=== PATIENT | female | born 1995 | race Caucasian/White ===

== ENCOUNTER 2016-06-19 17:39 | Emergency (ER) | payer OTHER ==
[~2016-06-19] VITALS: Ht 160 cm; Wt 66.9 kg
[~2016-06-19 17:39] MED LIST: CEPH-443 PO; IBUP-1542 PO; NITR-58 PO; ONDA4TAB8 PO; OXYC-279 PO
[2016-06-19 17:47] VITALS: Ht 160 cm; Wt 66.9 kg
[2016-06-19] MEDS ORDERED: morphine 4 MG/ML VIAL IV STA (18:33)
[2016-06-19] MEDS ORDERED: ONDANSETRON 4 MG INJ IV STA (18:33)
[2016-06-19 19:08] LABS: ADD UMIC YES; URINE BILIRUBIN (Dip) NEGATIVE (NEGATIVE); URINE BLOOD (Dip) 1+ (NEGATIVE); URINE COLOR LT. YELLOW (YELLOW); URINE GLUCOSE (Dip) NEGATIVE (NEGATIVE); URINE KETONES (Dip) NEGATIVE (NEGATIVE); URINE LEUKOCYTE ESTERASE (Dip) 1+ (NEGATIVE); URINE NITRITE (Dip) POSITIVE (NEGATIVE); URINE TOTAL PROTEIN (Dip) NEGATIVE (NEGATIVE); URINE UROBILINOGEN (Dip) 0.2 E.U./dL (0.1-1.0)
--- NOTE | 2016-06-19 19:19 | ERD ---
ER Documentation Chief Complaint Date/Time DATE: 06/19/16 TIME: 19:17 Chief Complaint INTERMITTENT LT FLANK PAIN SINCE YESTERDAY HPI This is a 21-year-old female who presents to the emergency department today complaining of left-sided flank pain for the past 2 days. Patient states she has a history of kidney stones on both sides and been seen here in the past for this. States she has not taken any medication for the pain. Denies any dysuria , fevers or chills. States that she did pass her kidney stones last time. ROS All systems reviewed and are negative except as per history of present illness. Medications Home Meds Active Scripts Ciprofloxacin Hcl* (Ciprofloxacin Hcl*) 500 Mg Tablet, 500 MG PO BID for 10 Days , TAB Prov:PATRICE HAYS PA-C 06/19/16 Naproxen* (Naprosyn*) 500 Mg Tablet, 500 MG PO BID Y for PAIN AND/OR INFLAMMATION, #30 TAB Prov:PATRICE HAYS PA-C 06/19/16 Hydrocodone/Acetaminophen ([place] 5-325 Tablet) 1 Each Tablet, 1 TAB PO Q6H Y for PAIN, #12 TAB Prov:PATRICE HAYS PA-C 06/19/16 Nitrofurantoin Monohyd Macrocr* (Macrobid*) 100 Mg Capsr, 100 MG PO BID for 7 Days, CAP Prov:PATRICE HAYS PA-C 03/24/16 Oxycodone HCl/Acetaminophen (Percocet 5-325 mg Tablet) 1 Each Tablet, 1 EACH PO TID for PAIN, #12 TAB Prov:LEANNE MALLOY MD 02/19/16 Ondansetron Hcl* (Zofran*) 4 Mg Tablet, 4 MG PO Q8H Y for NAUSEA AND/OR VOMITING , #20 TAB Prov:LEANNE MALLOY MD 02/19/16 Ibuprofen* (Ibuprofen*) 600 Mg Tablet, 600 MG PO Q8 for PAIN AND/OR INFLAMMATION , #30 TAB Prov:LEANNE MALLOY MD 02/19/16 Cephalexin* (Keflex*) 500 Mg Capsule, 500 MG PO TID for 7 Days, CAP Prov:LEANNE MALLOY MD 02/19/16 Allergies Allergies: Coded Allergies: No Known Allergies (Verified Allergy, Mild, 02/19/16) PMhx/Soc History of Surgery: Yes (, CHOLESYSTECTOMY) Anesthesia Reaction: No Hx Neurological Disorder: No Hx Respiratory Disorders: No Hx Cardiac Disorders: No Hx Psychiatric Problems: No Hx Miscellaneous Medical Probl: No (KIDNEY STONES ) Hx Alcohol Use: Yes (OOC) Hx Substance Use: No Hx Tobacco Use: No Smoking Status: Never smoker Physical Exam Vitals Vital Signs Date Time Temp Pulse Resp B/P Pulse Ox O2 Delivery O2 Flow Rate FiO2 06/19/16 17:47 98.8 70 20 134/99 100 Physical Exam Const: No acute distress Head: Atraumatic Eyes: Normal Conjunctiva ENT: Normal External Ears, Nose and Mouth. Neck: Full range of motion..~ No meningismus. Resp: Clear to auscultation bilaterally Cardio: Regular rate and rhythm, no murmurs Abd: Soft, non tender, non distended. Normal bowel sounds Skin: No petechiae or rashes Back: No midline tenderness. Left-sided flank tenderness and CVA tenderness. Neur: Awake and alert Psych: Normal Mood and Affect Results 24 hrs Laboratory Tests Test 06/19/16 18:48 Urine Bacteria MANY Urine Bilirubin NEGATIVE Urine Clarity CLOUDY Urine Color LT. YELLOW Urine Glucose NEGATIVE% Urine Hemoglobin 1+ Urine Ketones NEGATIVE Urine Leukocyte Esterase 1+ Urine Microscopic RBC 2-5/HPF Urine Microscopic WBC >200/HPF Urine Nitrite POSITIVE Urine Specific [place] 1.025 Urine Squamous Epithelial Cells MANY Urine Total Protein NEGATIVE Urine Urobilinogen 0.2 E.U./dL Urine pH 6.0 Current Medications Medications (Trade) Dose Ordered Sig/Robb Route PRN Reason Start Time Stop Time Status Last Admin Dose Admin Morphine Sulfate (morphine) 4 mg ONCE STAT IV 06/19/16 18:33 06/19/16 18:34 DC 06/19/16 19:01 Ondansetron HCl (Zofran Inj) 4 mg ONCE STAT IV 06/19/16 18:33 06/19/16 18:34 DC 06/19/16 19:01 Ceftriaxone Sodium (Rocephin) 1 gm ONCE ONCE IVPB 06/19/16 20:00 06/19/16 20:01 DC 06/19/16 19:55 Procedures/MDM This is a 21-year-old female who presents to the emergency department today complaining of left-sided flank pain for the past 2 days. Patient has a history of kidney stones. I did see this patient upon her last visit here in March 2016 when she presented with pain with urination at that time. Today on physical exam patient does have some left-sided flank pain and tenderness and therefore I did obtain a UA . UA shows 1+ leukocyte esterase. Positive nitrates. Greater than 200 microscopic white blood cells and 2-5 red blood cells. Patient symptoms at this time is consistent with early pyelonephritis. Patient is afebrile and otherwise well-appearing at this time. She is not tachycardic. I have lower suspicion for septic stone at this time. I do not feel that the patient requires a CT scan or ultrasound. Patient has had 2 CT scans in the past and at this point I feel the risks outweigh the benefits.. Patient was given morphine and Zofran here in the emergency department and pain was controlled. She was also given Rocephin here in the emergency department. Patient will be given a prescription for Cipro and Snyder and Naprosyn. Patient does have an appointment for follow-up with her primary care doctor later this month. I have explained to her that she should follow up with a sheep clipper given her multiple problems with her kidneys. Patient understood. I have given her a list of referrals. Departure Diagnosis: Primary Impression: Flank pain Condition: PATRICE Beach PA-C Jun 19, 2016 19:19
[2016-06-19 19:23] LABS: BACTERIA,URINE MANY; SQUAMOUS EPITHELIAL CELL,UR MANY
[2016-06-19] MEDS ORDERED: CEFTRIAXONE 1 GM INJ IVPB ONE (20:00)
[2016-06-19] MEDS ORDERED: HYDR-906 PO (20:35)
[2016-06-19] MEDS ORDERED: NAPR-260 PO (20:36)
[2016-06-19] MEDS ORDERED: CIPR500T4 PO (20:37)
[2016-06-19 20:51] VITALS: BP 121/82; PULSE 67; RESP 18; TEMP 98
== END 2016-06-19 20:51 | disposition home or self-care (01) ==
LOC: FTE 17:39
DX: R10.9 Unspecified abdominal pain (principal)
CPT/HCPCS: 81001; 81003; 87086; 96374; 96375; J0696; J2270; J2405; Z7502

== ENCOUNTER 2016-09-08 19:48 | Emergency (ER) | payer OTHER ==
[~2016-09-08] VITALS: Ht 152.4 cm; Wt 70.0 kg
[~2016-09-08 19:48] MED LIST changes: +CIPR500T4 PO; +HYDR-906 PO; +NAPR-260 PO
[2016-09-08 19:50] VITALS: Ht 152.4 cm; Wt 70.0 kg
--- NOTE | 2016-09-08 20:23 | ERD ---
ER Documentation Chief Complaint Date/Time DATE: 09/08/16 TIME: 20:21 Chief Complaint ap x2 days denies n/v/d. states about 4-5 weeks preg. no bleeding. HPI 21-year-old female presents here in emergency department for complaints of lower abdominal pain that started 2 weeks ago, worst in the last 2 days. Patient describes the pain as pelvic pain cramping pain 6/10 scale, not better or worse with anything. Patient's approximate 4 weeks , 2 para 1 0. LMP 07/30/2016. Patient denies any vaginal bleeding. Patient denies hematuria or dysuria. Patient denies any nausea vomiting or diarrhea. ROS All systems reviewed and are negative except as per history of present illness. Medications Home Meds Active Scripts Ciprofloxacin Hcl* (Ciprofloxacin Hcl*) 500 Mg Tablet, 500 MG PO BID for 10 Days , TAB Prov:PATRICE HAYS PA-C 06/19/16 Naproxen* (Naprosyn*) 500 Mg Tablet, 500 MG PO BID Y for PAIN AND/OR INFLAMMATION, #30 TAB Prov:PATRICE HAYS PA-C 06/19/16 Hydrocodone/Acetaminophen ([place] 5-325 Tablet) 1 Each Tablet, 1 TAB PO Q6H Y for PAIN, #12 TAB Prov:PATRICE HAYS PA-C 06/19/16 Nitrofurantoin Monohyd Macrocr* (Macrobid*) 100 Mg Capsr, 100 MG PO BID for 7 Days, CAP Prov:PATRICE HAYS PA-C 03/24/16 Oxycodone HCl/Acetaminophen (Percocet 5-325 mg Tablet) 1 Each Tablet, 1 EACH PO TID for PAIN, #12 TAB Prov:LEANNE MALLOY MD 02/19/16 Ondansetron Hcl* (Zofran*) 4 Mg Tablet, 4 MG PO Q8H Y for NAUSEA AND/OR VOMITING , #20 TAB Prov:LEANNE MALLOY MD 02/19/16 Ibuprofen* (Ibuprofen*) 600 Mg Tablet, 600 MG PO Q8 for PAIN AND/OR INFLAMMATION , #30 TAB Prov:LEANNE MALLOY MD 02/19/16 Cephalexin* (Keflex*) 500 Mg Capsule, 500 MG PO TID for 7 Days, CAP Prov:LEANNE MALLOY MD 02/19/16 Allergies Allergies: Coded Allergies: No Known Allergies (Verified Allergy, Mild, 02/19/16) PMhx/Soc History of Surgery: Yes (, CHOLESYSTECTOMY) Anesthesia Reaction: No Hx Neurological Disorder: No Hx Respiratory Disorders: No Hx Cardiac Disorders: No Hx Psychiatric Problems: No Hx Miscellaneous Medical Probl: No (KIDNEY STONES ) Hx Alcohol Use: Yes (OOC) Hx Substance Use: No Hx Tobacco Use: No FmHx Family History: No coronary disease, No diabetes, No other Physical Exam Vitals Vital Signs Date Time Temp Pulse Resp B/P Pulse Ox O2 Delivery O2 Flow Rate FiO2 09/08/16 19:50 99.0 83 20 127/80 100 Physical Exam GENERAL: The patient is well developed and appropriate for usual state of health, in no apparent distress. CHEST: Clear to auscultation bilaterally. There are no rales, wheezes or rhonchi. HEART: Regular rate and rhythm. No murmurs, clicks, rubs or gallops. No S3 or S4. ABDOMEN: Soft, nontender and nondistended. Good bowel sounds. No rebound or guarding. No gross peritonitis. No gross organomegaly or masses. No Ramírez sign or McBurney point tenderness. BACK: No midline or flank tenderness. EXTREMITIES: Equal pulses bilaterally. There is no peripheral clubbing, cyanosis or edema. No focal swelling or erythema. Full range of motion. Grossly neurovascularly intact. NEURO: Alert and oriented. Cranial nerves 2-12 intact. Motor strength in all 4 extremities with 5/5 strength. Sensation grossly intact. Normal speech and gait. SKIN: There is no apparent rash or petechia. The skin is warm and dry. HEMATOLOGIC AND LYMPHATIC: There is no evidence of excessive bruising or lymphedema. No gross cervical, axillary, or inguinal lymphadenopathy. Result Diagram: 09/08/162033 Results 24 hrs Laboratory Tests Test 09/08/16 20:34 White Blood Count 7.210^3/ul Red Blood Count 4.3010^6/ul Hemoglobin 12.4g/dl Hematocrit 37.2% Mean Corpuscular Volume 86.5fl Mean Corpuscular Hemoglobin 28.8pg Mean Corpuscular Hemoglobin Concent 33.3g/dl Red Cell Distribution Width 13.7% Platelet Count 32180^3/UL Mean Platelet Volume 14.0fl Neutrophils % 66.0% Lymphocytes % 28.0% Monocytes % 3.0% Eosinophils % 3.0% Neutrophils # 4.810^3/ul Lymphocytes # 2.010^3/ul Monocytes # 0.210^3/ul Eosinophils # 0.210^3/ul Urine Color LT. YELLOW Urine Clarity CLEAR Urine pH 6.5 Urine Specific [place] 1.015 Urine Ketones NEGATIVE Urine Nitrite NEGATIVE Urine Bilirubin NEGATIVE Urine Urobilinogen 0.2 E.U./dL Urine Leukocyte Esterase NEGATIVE Urine Microscopic RBC 0-2/HPF Urine Microscopic WBC NONE SEEN/HPF Urine Epithelial Cells MODERATE Urine Bacteria RARE Urine Hemoglobin TRACE Urine Glucose NEGATIVE% Urine Total Protein NEGATIVE Beta HCG, Quantitative 2336.5mIU/ml PROCEDURE: OBSTETRICAL ULTRASOUND WITH ENDOVAGINAL IMAGES CLINICAL INDICATION: Vaginal Bleed (), abdominal pain TECHNIQUE: Multiple sonographic images of the pelvis were obtained utilizing a transabdominal and endovaginal technique. The images were reviewed on a PACS workstation. COMPARISON: None. LMP: 07/30/2016 Gestational age by LMP: 5 weeks, 5 days FINDINGS: There is thickening of the endometrium. A possible intrauterine gestational sac is identified with mean sac diameter of 0.41 cm which would be consistent with a gestational age of 5 weeks, 0 days and an estimated date of delivery of 05/11/2017 . No yolk sac or pole is identified within it. The right ovary measures 3.3 x 2.0 x 2.1 cm. The left ovary measures 4.2 x 3.1 x 3.3 cm. There is normal vascular flow in both ovaries. There is a 2.9 cm simple cystic lesion in the left ovary which is likely an enlarged follicle. No significant pelvic free fluid is identified. IMPRESSION: A possible intrauterine gestational sac is identified which would be consistent with a gestational age of 5 weeks, 0 days . No yolk sac or pole is identified within it. Findings may be due to an early intrauterine although an ectopic is not excluded. Short-term follow-up ultrasound and serial Beta HCG measurements are recommended for further evaluation. RPTAT: EE Jesus Villanueva Physician Date Time Electronically viewed and signed by Jesus Villanueva Physician on 09/08/2016 21:34 RA/ CC: ANDER ROWE NP Procedures/MDM Medical Decision Making: Patient's pelvic pain nonspecific at this time, beta hCG quantitative is elevated is consistent with , patient's ultrasound show a possible intrauterine gestation without any yolk sac OR pole consistent with possible early , may be also consistent with early intrauterine failed gestation, low suspicion for ectopic at this time , upon reevaluation of the patient, patient denies any abdominal pain, denies any flank pain. Patient denies any pain at this time. We will be testing in 2 days was advised for repeat beta hCG quantitative, possible repeat ultrasound. Ectopic percussion was advised to the patient and patient understand this plan and verbalized understanding. There is low suspicion for abdominal emergencies at this time. Patients abdominal exam is normal at this time. Patients radiology exam does not show any abdominal emergencies at this time. There is low suspicion for appendicitis, cholecystitis, abdominal aortic aneurysms or peritonitis at this time. There is low suspicion for sepsis. Patient appears well and is hemodynamically stable. Disposition: Home. Condition: Stable Prescription Tylenol Instructions: Patient is advised to take medications as prescribed. Patient is advised to rest, increase fluid intake and do brat diet for next 1-2 days and progress as tolerated. Patient is advised that if symptoms are worse, severe abdominal pain, uncontrolled vomiting, high fever, severe flank pain, worst signs and symptoms, to return to the emergency department immediately. Otherwise, patient can follow up in emergency Department in 2 days for reevaluation of beta hCG quantitative. Departure Diagnosis: Primary Impression: Pelvic pain Additional Impression: Intrauterine Condition: Stable Patient Instructions: Pelvic Pain, Unknown Cause Additional Instructions: Patient is advised to take medications as prescribed. Patient is advised to rest, increase fluid intake and do brat diet for next 1-2 days and progress as tolerated. Patient is advised that if symptoms are worse, severe abdominal pain , uncontrolled vomiting, high fever, severe flank pain, worst signs and symptoms , to return to the emergency department immediately. Otherwise, patient can follow up in emergency Department in 2 days for reevaluation of beta hCG quantitative. ANDER ROWE NP September 08, 2016 20:23
[2016-09-08 20:54] LABS: ADD SCAN DIFF NO
[2016-09-08 20:59] LABS: ABNORMAL IP MESSAGE 1; HEMATOCRIT 37.2 % (37.0-47.0); HEMOGLOBIN 12.4 g/dl (12.0-16.0); MEAN CORPUSCULAR HEMOGLOBIN 28.8 pg (29.0-33.0); MEAN CORPUSCULAR HGB CONC 33.3 g/dl (32.0-37.0); MEAN CORPUSCULAR VOLUME 86.5 fl (82.0-101.0); PLATELET COUNT 121 10^3/UL (140-415); RED CELL DISTRIBUTION WIDTH 13.7 % (11.5-14.5); WHITE BLOOD COUNT 7.2 10^3/ul (4.8-10.8)
[2016-09-08 21:00] LABS: ADD UMIC YES; URINE BILIRUBIN (Dip) NEGATIVE (NEGATIVE); URINE BLOOD (Dip) TRACE (NEGATIVE); URINE COLOR LT. YELLOW (YELLOW); URINE GLUCOSE (Dip) NEGATIVE (NEGATIVE); URINE KETONES (Dip) NEGATIVE (NEGATIVE); URINE LEUKOCYTE ESTERASE (Dip) NEGATIVE (NEGATIVE); URINE NITRITE (Dip) NEGATIVE (NEGATIVE); URINE TOTAL PROTEIN (Dip) NEGATIVE (NEGATIVE); URINE UROBILINOGEN (Dip) 0.2 E.U./dL (0.1-1.0)
[2016-09-08 21:08] LABS: URINE RBCS 0-2 /HPF (0)
[2016-09-08 21:09] LABS: BACTERIA,URINE RARE
[2016-09-08 21:32] LABS: EOSINOPHILS # 0.2 10^3/ul (0.0-0.5); MONOCYTE # 0.2 10^3/ul (0.3-0.9); NEUTROPHIL # 4.8 10^3/ul (1.6-7.5)
--- NOTE | 2016-09-08 21:34 | RADRPT ---
PROCEDURE: OBSTETRICAL ULTRASOUND WITH ENDOVAGINAL IMAGES CLINICAL INDICATION: Vaginal Bleed (), abdominal pain TECHNIQUE: Multiple sonographic images of the pelvis were obtained utilizing a transabdominal and endovaginal technique. The images were reviewed on a PACS workstation. COMPARISON: None. LMP: 07/30/2016 Gestational age by LMP: 5 weeks, 5 days FINDINGS: There is thickening of the endometrium. A possible intrauterine gestational sac is identified with mean sac diameter of 0.41 cm which would be consistent with a gestational age of 5 weeks, 0 days and an estimated date of delivery of 018 . No yolk sac or pole is identified within it. The right ovary measures 3.3 x 2.0 x 2.1 cm. The left ovary measures 4.2 x 3.1 x 3.3 cm. There is no rmal vascular flow in both ovaries. There is a 2.9 cm simple cystic lesion in the left ovary which is likely an enlarged follicle. No significant pelvic free fluid is identified. IMPRESSION: A possible intrauterine gestational sac is identified which would be consistent with a gestational a ge of 5 weeks, 0 days . No yolk sac or pole is identified within it. Findings may be due to a n early intrauterine although an ectopic is not excluded. Short-term follow-up ultrasound and serial Beta HCG measurements are recommended for further evaluation. RPTAT: EE Physician Marlee Date Time Electronically viewed and signed by Physician Marlee on 09/08/2016 21:34 /
[2016-09-08] MEDS ORDERED: ACET500C5 PO (21:53)
== END 2016-09-08 22:25 | disposition home or self-care (01) ==
LOC: FTE 19:48
DX: O99.89 Other specified diseases and conditions complicating pregnancy, childbirth and the puerperium (principal); R10.2 Pelvic and perineal pain; Z3A.01 Less than 8 weeks gestation of pregnancy
CPT/HCPCS: 36415; 76801; 76817; 81001; 84702; 85025; 86900; 86901; Z7502

== ENCOUNTER 2016-09-10 06:02 | Emergency (ER) | payer OTHER ==
[~2016-09-10] VITALS: Ht 157.5 cm; Wt 69.5 kg
[~2016-09-10 06:02] MED LIST changes: +ACET500C5 PO
[2016-09-10 06:04] VITALS: Ht 157.5 cm; Wt 69.5 kg
--- NOTE | 2016-09-10 06:24 | ERD ---
ER Documentation Chief Complaint Date/Time DATE: 09/10/16 TIME: 06:23 Chief Complaint for recheck of 5 wks - beta hcg, here 2 days ago for pelvic pain HPI 21-year-old female is here for 48 hour recheck for beta quantitative, she is currently approximately 4-5 weeks and was previously seen for bilateral lower pelvic pain on Thursday which was 2 days ago. Patient states that her last menstrual period was on July 30, 2016, she had some bilateral pelvic pain that was achy, worse with any movement and resided after she left the emergency department. She has not had any fevers or chills, UTI symptoms, or vaginal bleeding. ROS All systems reviewed and are negative except as per history of present illness. Medications Home Meds Active Scripts Acetaminophen* (Tylophen*) 500 Mg Capsule, 1 CAP PO Q6H Y for PAIN AND OR ELEVATED TEMP, #20 CAP Prov:ANDER ROWE NP 09/08/16 Ciprofloxacin Hcl* (Ciprofloxacin Hcl*) 500 Mg Tablet, 500 MG PO BID for 10 Days , TAB Prov:PATRICE HAYSC 06/19/16 Naproxen* (Naprosyn*) 500 Mg Tablet, 500 MG PO BID Y for PAIN AND/OR INFLAMMATION, #30 TAB Prov:PATRICE HAYSC 06/19/16 Hydrocodone/Acetaminophen ([place] 5-325 Tablet) 1 Each Tablet, 1 TAB PO Q6H Y for PAIN, #12 TAB Prov:PROPATRICE CLARKC 06/19/16 Nitrofurantoin Monohyd Macrocr* (Macrobid*) 100 Mg Capsr, 100 MG PO BID for 7 Days, CAP Prov:PATRICE HAYSC 03/24/16 Oxycodone HCl/Acetaminophen (Percocet 5-325 mg Tablet) 1 Each Tablet, 1 EACH PO TID for PAIN, #12 TAB Prov:LEANNE MALLOY MD 02/19/16 Ondansetron Hcl* (Zofran*) 4 Mg Tablet, 4 MG PO Q8H Y for NAUSEA AND/OR VOMITING , #20 TAB Prov:LEANNE MALLOY MD 02/19/16 Ibuprofen* (Ibuprofen*) 600 Mg Tablet, 600 MG PO Q8 for PAIN AND/OR INFLAMMATION , #30 TAB Prov:LEANNE MALLOY MD 02/19/16 Cephalexin* (Keflex*) 500 Mg Capsule, 500 MG PO TID for 7 Days, CAP Prov:LEANNE MALLOY MD 02/19/16 Allergies Allergies: Coded Allergies: No Known Allergies (Verified Allergy, Mild, 02/19/16) PMhx/Soc History of Surgery: Yes (, CHOLESYSTECTOMY) Anesthesia Reaction: No Hx Neurological Disorder: No Hx Respiratory Disorders: No Hx Cardiac Disorders: No Hx Psychiatric Problems: No Hx Miscellaneous Medical Probl: No (KIDNEY STONES ) Hx Alcohol Use: Yes (OOC) Hx Substance Use: No Hx Tobacco Use: No Physical Exam Vitals Vital Signs Date Time Temp Pulse Resp B/P Pulse Ox O2 Delivery O2 Flow Rate FiO2 09/10/16 06:04 97.8 88 20 119/69 100 Physical Exam General: Well-developed, well-nourished. The patient appears in no acute distress. HEENT: Head is normocephalic, atraumatic. No scleral icterus. Neck: Supple. Nontender. Lungs: Clear to auscultation. Normal air movement. Heart: Regular rate and rhythm. S1 and S2 are normal. No murmurs, gallops, or rubs. Abdomen: Soft, nontender, nondistended. Bowel sounds are normoactive. Extremities: No clubbing or cyanosis. Normal pulses. Moving extremities x 4. No weakness. Neurologic: Alert and oriented 3. No focal deficits. Skin: Normal turgor. No rash or lesions. Results 24 hrs Laboratory Tests Test 09/10/16 06:30 09/10/16 06:33 Urine Color LT. YELLOW Urine Clarity CLEAR Urine pH 6.0 Urine Specific [place] 1.025 Urine Ketones NEGATIVE Urine Nitrite NEGATIVE Urine Bilirubin NEGATIVE Urine Urobilinogen 0.2 E.U./dL Urine Leukocyte Esterase NEGATIVE Urine Microscopic RBC 0-2/HPF Urine Microscopic WBC 0-2/HPF Urine Epithelial Cells FEW Urine Hemoglobin TRACE Urine Glucose NEGATIVE% Urine Total Protein NEGATIVE Beta HCG, Quantitative 3531.7mIU/ml Procedures/MDM ED course: Patient's EMR was reviewed, her hCG quantitative was compared to the prior, and it has increased by approximately 50% pelvic ultrasound showed a possible gestational sac that was measured to be 0.41 cm, and 0.43 cm today that is intrauterine. No adnexal masses. There is a small subchorionic hemorrhage however she is type and Rh+ and there is no indication for RhoGam. MDM: 21-year-old female comes with pelvic pain with positive , differential diagnosis includes early intrauterine , versus possible miscarriage. Suspicion for ectopic is low. Her beta quantitative hCG did increase by 50% and the sac is intrauterine, however there is no evidence of other masses, including adnexal masses. She has a simple cyst in the left ovary and subchorionic hemorrhage. This was discussed with the laborist, Dr Orosco. She advised that we should give ectopic return precautions, as well as miscarriage precautions and that she is to recheck an ultrasound in a week. I have asked the patient to recheck in 2-3 days as precaution, she has an appointment with her OB on Thursday. Departure Diagnosis: Primary Impression: Condition: SHARMIN Berumen PA-C September 10, 2016 06:24
[2016-09-10 06:46] LABS: ADD UMIC YES; URINE BILIRUBIN (Dip) NEGATIVE (NEGATIVE); URINE BLOOD (Dip) TRACE (NEGATIVE); URINE COLOR LT. YELLOW (YELLOW); URINE GLUCOSE (Dip) NEGATIVE (NEGATIVE); URINE KETONES (Dip) NEGATIVE (NEGATIVE); URINE LEUKOCYTE ESTERASE (Dip) NEGATIVE (NEGATIVE); URINE NITRITE (Dip) NEGATIVE (NEGATIVE); URINE TOTAL PROTEIN (Dip) NEGATIVE (NEGATIVE); URINE UROBILINOGEN (Dip) 0.2 E.U./dL (0.1-1.0)
[2016-09-10 07:06] LABS: URINE RBCS 0-2 /HPF (0)
--- NOTE | 2016-09-10 07:06 | RADRPT ---
PROCEDURE: Obstetrical ultrasound. CLINICAL INDICATION: Pelvic pain. TECHNIQUE: Multiple sonographic images of the pelvis were obtained with transabdominal and endova ginal technique. Images were obtained with hays scale and color Doppler. COMPARISON: 09/08/2016. FINDINGS: There is an intrauterine gestational sac with no pole or yolk sac identified. The mean sac di ameter averages 0.46 cm. A small subchorionic collection is identified. There is no pelvic free fluid. The right ovary measures 3.1 x 1.5 x 1.7 cm and the left ovary measu res 4.3 x 2.7 x 3.4 cm. There is normal flow to both ovaries. There is an anechoic cyst within the left ovary measuring 2.5 x 2.1 cm. There is no suspicious adnexal mass identified. IMPRESSION: Intrauterine gestational sac with no pole or yolk sac identified. Short-term follow-up ultras ound is recommended. Subchorionic hemorrhage. Left ovarian 2.5 cm simple cyst. .Tomi Gomez MD, MD Date Time Electronically viewed and signed by .Tomi Gomez MD, MD on 09/10/2016 07:06 .T/
== END 2016-09-10 09:18 | disposition home or self-care (01) ==
LOC: FTE 06:02
DX: O26.891 Other specified pregnancy related conditions, first trimester (principal); R10.2 Pelvic and perineal pain; Z3A.00 Weeks of gestation of pregnancy not specified
CPT/HCPCS: 36415; 76801; 76817; 81001; 84702; Z7502

== ENCOUNTER 2016-10-16 19:32 | Emergency (ER) | payer OTHER ==
[~2016-10-16] VITALS: Ht 160 cm; Wt 70.0 kg
[2016-10-16 19:33] VITALS: Ht 160 cm; Wt 70.0 kg
[2016-10-16] MEDS ORDERED: HYDROCODONE/APAP (5/325) TAB PO STA (20:12)
[2016-10-16] MEDS ORDERED: SOD CHLORIDE 0.9% 1,000 ML IV STA (20:12)
[2016-10-16 20:53] LABS: URINE BLOOD (Dip) POC 3+ (NEGATIVE)
--- NOTE | 2016-10-16 20:59 | RADRPT ---
PROCEDURE: First trimester obstetrical ultrasound. CLINICAL INDICATION: , pelvic pain TECHNIQUE: Transabdominal and transvaginal hays scale and color Doppler ultrasound of the uterus . COMPARISON: OB ultrasound 09/10/2016 FINDINGS: No evidence of extrauterine gestation. Previously seen gestational sac in the region of the uterine fundus now measures 8.5 mm and is seen in the region of the lower uterine segment. No evidence of subchorionic hemorrhage. Normal size ovaries are present with intact blood flow. Free fluid: None. IMPRESSION: Findings are compatible with failed intrauterine gestation given the lack of interval growth and inc omplete miscarriage with gestational sac remnant in the lower uterine segment. Correlation with larry ntitative beta HCG trend is recommended. Results were discussed with PA. Church by telephone at 2057 hours on 10/16/[address] Rebel wei RPTAT: AADD .Rebel Pérez MD, MD Date Time Electronically viewed and signed by .Rebel Pérez MD, MD on 10/16/2016 20:59 .B/
[2016-10-16 21:10] LABS: BASOPHILS % 0.2 % (0.0-2.0); EOSINOPHILS # 0.3 10^3/ul (0.0-0.5); EOSINOPHILS % 3.6 % (0.0-7.0); HEMATOCRIT 40.4 % (37.0-47.0); HEMOGLOBIN 13.4 g/dl (12.0-16.0); LYMPHOCYTES # 2.7 10^3/ul (0.8-2.9); LYMPHOCYTES % 31.4 % (15.0-51.0); MEAN CORPUSCULAR HEMOGLOBIN 29.3 pg (29.0-33.0); MEAN CORPUSCULAR HGB CONC 33.2 g/dl (32.0-37.0); MEAN CORPUSCULAR VOLUME 88.2 fl (82.0-101.0); MEAN PLATELET VOLUME 12.8 fl (7.4-10.4); MONOCYTE # 0.6 10^3/ul (0.3-0.9); MONOCYTES % 7.6 % (0.0-11.0); NEUTROPHIL # 4.8 10^3/ul (1.6-7.5); NEUTROPHILS % 56.8 % (39.0-77.0); PLATELET COUNT 172 10^3/UL (140-415); RED BLOOD COUNT 4.58 10^6/ul (4.20-5.40); RED CELL DISTRIBUTION WIDTH 13.5 % (11.5-14.5); WHITE BLOOD COUNT 8.5 10^3/ul (4.8-10.8)
--- NOTE | 2016-10-16 21:17 | ERD ---
ER Documentation Chief Complaint Date/Time DATE: 10/16/16 TIME: 21:07 Chief Complaint 6 weeks vag bleeding passed out clotted blood HPI This pleasant 21-year-old female presenting to emergency department with history of actively miscarrying. she was seen at [facility] 2 days ago, was told approximately 6 week and miscarrying. pt told that she has a closed os and to come to [facility] if she starts to passing clots. Patient states she started passing clots at 1500 today. She did bring in a specimen sent to lab. Patient reports that she is saturating 5- 6 peripads since 1500. Patient reports abdominal cramping, back pain, 2 para 1-actively miscarrying. Patient denies dizziness, nausea or vomiting ROS All systems reviewed and are negative except as per history of present illness. Medications Home Meds Active Scripts Naproxen* (Naprosyn*) 500 Mg Tablet, 500 MG PO BID Y for PAIN AND/OR INFLAMMATION, #30 TAB Prov:MISSY DICKEY 10/17/16 Acetaminophen* (Tylophen*) 500 Mg Capsule, 1 CAP PO Q6H Y for PAIN AND OR ELEVATED TEMP, #20 CAP Prov:ANDER ROWE NP 09/08/16 Ciprofloxacin Hcl* (Ciprofloxacin Hcl*) 500 Mg Tablet, 500 MG PO BID for 10 Days , TAB Prov:PATRICE HAYS PA-C 06/19/16 Naproxen* (Naprosyn*) 500 Mg Tablet, 500 MG PO BID Y for PAIN AND/OR INFLAMMATION, #30 TAB Prov:PATRICE HAYSC 06/19/16 Hydrocodone/Acetaminophen ([place] 5-325 Tablet) 1 Each Tablet, 1 TAB PO Q6H Y for PAIN, #12 TAB Prov:PATRICE HAYSC 06/19/16 Nitrofurantoin Monohyd Macrocr* (Macrobid*) 100 Mg Capsr, 100 MG PO BID for 7 Days, CAP Prov:PATRICE HAYSC 03/24/16 Oxycodone HCl/Acetaminophen (Percocet 5-325 mg Tablet) 1 Each Tablet, 1 EACH PO TID for PAIN, #12 TAB Prov:LEANNE MALLOY MD 02/19/16 Ondansetron Hcl* (Zofran*) 4 Mg Tablet, 4 MG PO Q8H Y for NAUSEA AND/OR VOMITING , #20 TAB Prov:LEANNE MALLOY MD 02/19/16 Ibuprofen* (Ibuprofen*) 600 Mg Tablet, 600 MG PO Q8 for PAIN AND/OR INFLAMMATION , #30 TAB Prov:LEANNE MALLOY MD 02/19/16 Cephalexin* (Keflex*) 500 Mg Capsule, 500 MG PO TID for 7 Days, CAP Prov:LEANNE MALLOY MD 02/19/16 Allergies Allergies: Coded Allergies: No Known Allergies (Verified Allergy, Mild, 02/19/16) PMhx/Soc History of Surgery: Yes (, CHOLESYSTECTOMY) Anesthesia Reaction: No Hx Neurological Disorder: No Hx Respiratory Disorders: No Hx Cardiac Disorders: No Hx Psychiatric Problems: No Hx Miscellaneous Medical Probl: No (KIDNEY STONES ) Hx Alcohol Use: Yes Hx Substance Use: No Hx Tobacco Use: No Physical Exam Vitals Vital Signs Date Time Temp Pulse Resp B/P Pulse Ox O2 Delivery O2 Flow Rate FiO2 10/17/16 04:14 98.4 66 20 127/86 100 Room Air 10/16/16 19:33 98.4 73 20 175/99 99 Vitals stable, triage notes reviewed blood pressure noted to be 175/99 Physical Exam Const: Well-nourished, well-hydrated 21-year-old female no acute distress Head: Atraumatic Eyes: Normal Conjunctiva no pallor, PERRLA, EOMI ENT: Normal External Ears, Nose and Mouth. Mucous membranes moist Neck: Resp: Respirations even and unlabored, no respiratory distress Cardio: Regular rate and rhythm, no murmurs Pelvic Exam: Colon And Rectal Surgeon present Abdomen: Abdomen soft, obese, pelvic tenderness, no CVA tenderness, External Genitalia: Normal Skin Speculum: Unable to visualize cervix, blood in vault Bimanual: Deferred Skin: Back: Low back pain Ext: Neur: Awake and alert Psych: Normal Mood and Affect Result Diagram: 10/16/162044 Results 24 hrs Laboratory Tests Test 10/16/16 20:45 10/16/16 20:57 White Blood Count 8.510^3/ul Red Blood Count 4.5810^6/ul Hemoglobin 13.4g/dl Hematocrit 40.4% Mean Corpuscular Volume 88.2fl Mean Corpuscular Hemoglobin 29.3pg Mean Corpuscular Hemoglobin Concent 33.2g/dl Red Cell Distribution Width 13.5% Platelet Count 58622^3/UL Mean Platelet Volume 12.8fl Neutrophils % 56.8% Lymphocytes % 31.4% Monocytes % 7.6% Eosinophils % 3.6% Basophils % 0.2% Nucleated Red Blood Cells % 0.0/100WBC Neutrophils # 4.810^3/ul Lymphocytes # 2.710^3/ul Monocytes # 0.610^3/ul Eosinophils # 0.310^3/ul Basophils # 0.010^3/ul Nucleated Red Blood Cells # 0.010^3/ul Urine Color YELLOW Urine Clarity SLIGHTLY CLOUDY Urine pH 5.0 Urine Specific [place] 1.023 Urine Ketones NEGATIVEmg/dL Urine Nitrite NEGATIVEmg/dL Urine Bilirubin NEGATIVEmg/dL Urine Urobilinogen NEGATIVEmg/dL Urine Leukocyte Esterase NEGATIVELeu/ul Urine Microscopic RBC > 182/HPF Urine Microscopic WBC 8/HPF Urine Squamous Epithelial Cells FEW/HPF Urine Bacteria FEW/HPF Urine Mucus FEW/HPF Urine Hemoglobin 3+mg/dL Urine Glucose NEGATIVEmg/dL Urine Total Protein 1+mg/dl Beta HCG, Quantitative 3228.4mIU/ml Bedside Urine pH (LAB) 5.5 Bedside Urine Protein (LAB) 1+ Bedside Urine Glucose (UA) Negative Bedside Urine Ketones (LAB) Negative Bedside Urine Blood 3+ Bedside Urine Nitrite (LAB) Negative Bedside Urine Leukocyte Esterase (L Negative Current Medications Medications (Trade) Dose Ordered Sig/Robb Route PRN Reason Start Time Stop Time Status Last Admin Dose Admin Sodium Chloride (NS) 1,000 ml @ 1,000 mls/hr Q1H STAT IV 10/16/16 20:12 10/16/16 21:11 DC 10/16/16 20:56 Acetaminophen/ Hydrocodone Bitart ([place] (5/325)) 1 tab ONCE STAT PO 10/16/16 20:12 10/16/16 20:15 DC 10/16/16 20:56 Misoprostol (Cytotec) 600 mcg ONCE ONCE SL 10/17/16 00:30 10/17/16 00:31 DC 10/17/16 00:42 Acetaminophen/ Hydrocodone Bitart ([place] (5/325)) 1 tab ONCE ONCE PO 10/17/16 00:30 10/17/16 00:31 DC 10/17/16 00:42 Procedures/MDM PROCEDURE: First trimester obstetrical ultrasound. CLINICAL INDICATION: , pelvic pain TECHNIQUE: Transabdominal and transvaginal hays scale and color Doppler ultrasound of the uterus . COMPARISON: OB ultrasound 09/10/2016 FINDINGS: No evidence of extrauterine gestation. Previously seen gestational sac in the region of the uterine fundus now measures 8.5 mm and is seen in the region of the lower uterine segment. No evidence of subchorionic hemorrhage. Normal size ovaries are present with intact blood flow. Free fluid: None. IMPRESSION: Findings are compatible with failed intrauterine gestation given the lack of interval growth and incomplete miscarriage with gestational sac remnant in the lower uterine segment. Correlation with quantitative beta HCG trend is recommended. Results were discussed with PA. Church by telephone at 2057 hours on [address] Rebel Pérez Electronically viewed and signed by .Rebel Pérez MD, MD on 10/16/2016 20:59 This 21-year-old female presents to emergency department with her significant other reports 6 week with vaginal bleeding seen 2 days ago at [facility] and diagnosed with a miscarriage. Patient reports that she was told to come to [facility] if she starts passing clots or bleeding. Patient reports she started passing clots and actively being at 1500 today. Patient treated with 1 L of normal saline, labs obtained as well as OB ultrasound with documentation as mentioned above, incomplete miscarriage with gestational sac remanent in uterine segment. Quantitative beta hCG trend was recommended, 3228.4. Pelvic exam attempted by myself unable to visualize office related to blood, on-call labor is Dr. Cari Diana notified MD came to examine patient. Patient has eaten prior to arrival to emergency department , a D&C will not be performed. Patient is given Cytotec 600 mg buccal 1 monitored for 2 hours pain treated with [place] reassessed with additional ultrasound with impression of intrauterine sac like structure at 5 weeks 3 days size without pole or heart motion now in lower uterine segment near the cervix may represent an early intrauterine too small to identify a pole however the gestational sacs position now in the lower uterine segment near the cervix suggests demise or a bilghted ovum with impending spontaneous . No adnexal mass or free fluid to suggest ectopic . I spent 15 minutes explaining course and exam findings to patient and patient's father. Patient is understandably upset reports pain will be discharged home with Shawn, instructed that she will likely continue passing clots. Call clinic schedule follow-up appointment return to emergency department for worsening of vaginal bleeding saturating peripads more than one an hour. I feel the patient is stable for discharge at this time. I have discussed results , examination findings, the treatment plan with the patient and family present prior to discharge. Indications for emergent reevaluation, side effects of medication were also discussed. All questions were answered. Patient verbalizes understanding and agrees with plan of care. Departure Diagnosis: Primary Impression: Vaginal bleeding in patient at less than 20 weeks gestation Additional Impression: Incomplete miscarriage Patient Instructions: Missed Miscarriage Referrals: MEDICATION AID REFERRAL LIST Additional Instructions: Thank you for for coming to [facility] for your care today. Please ask your nurse or provider if you have questions about your care today and do not leave until all your questions have been answered. Please use any medications given as directed and follow-up with your doctor (or the doctor you were referred to) in the next 2-3 days. If you do not have a primary care doctor you may follow up at the [facility] [place] (listed below). You may also use motrin and tylenol as needed for fever and/or pain unless instructed otherwise by your provider or nurse. Indications for more urgent follow-up have been discussed, but you may return to the Emergency Department at ANY time for any worrisome or worsening symptoms. If you have abdominal pain, please know that no test or exam you received is perfect and you should follow up within 8 hours for continued pain. If you had any imaging studies today, such as an X-Ray or CT Scan, these studies will be reviewed later by a radiologist. You will be called if there are important findings that were not identified today, so make sure the contact information you provided at registration is correct. If you received any narcotic pain control medicine today, such as Vicodin, Morphine or Dilaudid, your coordination and judgment may be affected for a number of hours. Please do not drive or operate heavy machinery, and you may want someone to assist you at home. If you were given a prescription for narcotic medication, be aware that it is very addictive- use sparingly and only if necessary. MISSY DICKEY Oct 16, 2016 21:17
[2016-10-16 21:20] LABS: ADD UMIC YES; UR ASCORBIC ACID NEGATIVE (NEGATIVE); UR BACTERIA FEW /HPF (NONE SEEN); UR BILIRUBIN (Dip) NEGATIVE (NEGATIVE); UR BLOOD (Dip) 3+ mg/dL (NEGATIVE); UR CLARITY SLIGHTLY CLOUDY (CLEAR); UR COLOR YELLOW (YELLOW); UR GLUCOSE (Dip) NEGATIVE (NEGATIVE); UR KETONES (Dip) NEGATIVE (NEGATIVE); UR LEUKOCYTE ESTERASE (Dip) NEGATIVE Leu/ul (NEGATIVE); UR MUCUS FEW /HPF (NONE SEEN); UR NITRITE (Dip) NEGATIVE (NEGATIVE); UR RBC > 182 /HPF (0-5); UR SPECIFIC GRAVITY (Dip) 1.023 (1.003-1.030); UR SQUAMOUS EPITHELIAL CELL FEW /HPF (FEW); UR TOTAL PROTEIN (Dip) 1+ mg/dl (NEGATIVE); UR UROBILINOGEN (Dip) NEGATIVE (NEGATIVE)
--- NOTE | 2016-10-17 00:29 | QN ---
Documentation Comment 21 yo P1 @ 6wks gestation, w missed ab, just passed a clot, possibly now complete SAB POB- c/d x 1 PMH- gallstones PSH- chloecystectomy Meds- none NKDA PE: Nml pulse and temp; elevated BP (175/99) when patient arrived Laboratory Tests Test 10/16/16 20:45 10/16/16 20:57 White Blood Count 8.510^3/ul Red Blood Count 4.5810^6/ul Hemoglobin 13.4g/dl Hematocrit 40.4% Mean Corpuscular Volume 88.2fl Mean Corpuscular Hemoglobin 29.3pg Mean Corpuscular Hemoglobin Concent 33.2g/dl Red Cell Distribution Width 13.5% Platelet Count 74523^3/UL Mean Platelet Volume 12.8fl Neutrophils % 56.8% Lymphocytes % 31.4% Monocytes % 7.6% Eosinophils % 3.6% Basophils % 0.2% Nucleated Red Blood Cells % 0.0/100WBC Neutrophils # 4.810^3/ul Lymphocytes # 2.710^3/ul Monocytes # 0.610^3/ul Eosinophils # 0.310^3/ul Basophils # 0.010^3/ul Nucleated Red Blood Cells # 0.010^3/ul Urine Color YELLOW Urine Clarity SLIGHTLY CLOUDY Urine pH 5.0 Urine Specific [place] 1.023 Urine Ketones NEGATIVEmg/dL Urine Nitrite NEGATIVEmg/dL Urine Bilirubin NEGATIVEmg/dL Urine Urobilinogen NEGATIVEmg/dL Urine Leukocyte Esterase NEGATIVELeu/ul Urine Microscopic RBC > 182/HPF Urine Microscopic WBC 8/HPF Urine Squamous Epithelial Cells FEW/HPF Urine Bacteria FEW/HPF Urine Mucus FEW/HPF Urine Hemoglobin 3+mg/dL Urine Glucose NEGATIVEmg/dL Urine Total Protein 1+mg/dl Beta HCG, Quantitative 3228.4mIU/ml Bedside Urine pH (LAB) 5.5 Bedside Urine Protein (LAB) 1+ Bedside Urine Glucose (UA) Negative Bedside Urine Ketones (LAB) Negative Bedside Urine Blood 3+ Bedside Urine Nitrite (LAB) Negative Bedside Urine Leukocyte Esterase (L Negative Current Medications Medications (Trade) Dose Ordered Sig/Robb Route PRN Reason Start Time Stop Time Status Last Admin Dose Admin Sodium Chloride (NS) 1,000 ml @ 1,000 mls/hr Q1H STAT IV 10/16/16 20:12 10/16/16 21:11 DC 10/16/16 20:56 Acetaminophen/ Hydrocodone Bitart ([place] (5/325)) 1 tab ONCE STAT PO 10/16/16 20:12 10/16/16 20:15 DC 10/16/16 20:56 Adomen- soft, n/t Speculum exam: patient passed clot w possible tissue; no active bleeding; closed cervix SVE- l/c/p A/P: 21 yo w missed ab -patient is not actively bleeding, her hemoglobin is 13.4, and she is stable - patient offered cytotec, 600mcg buccal, to attempt to expel remaining POC; she ate after 7pm tonight, and is the case is not emergent and patient not NPO, surgery is not an option at this point. - will repeat sono after cytotec; if gestational sac no longer present, d/c home - if patient still has POC and closed cervix, d/c home and f/u in clinic to schedule outpatient d&C SADIE WHITE MD Oct 17, 2016 00:29
[2016-10-17] MEDS ORDERED: HYDROCODONE/APAP (5/325) TAB PO ONE (00:30)
[2016-10-17] MEDS ORDERED: MISOPROSTOL 200 MCG TAB SL ONE (00:30)
--- NOTE | 2016-10-17 03:03 | RADRPT ---
PROCEDURE: US OB. CLINICAL INDICATION: . Vaginal bleeding. TECHNIQUE: Multiple sonographic images of the pelvis were obtained. Transabdominal and transvagin al views of the pelvis are available for review. The images were reviewed on a PACS workstation. COMPARISON: 10/16/2016 FINDINGS: An intrauterine probable early gestational sac is now present in the lower uterine segment near the cervix, measuring 7.8 mm is identified, correspond to 5 weeks 3 days.. No pole or cardiac act ivity is detected. No subchorionic hemorrhage is identified. The ovaries are normal in appearanc e with normal vascular flow.. There is no adnexal mass or free fluid. IMPRESSION: Intrauterine sac-like structure at 5 weeks 3-day size without pole or heart motion, now in the lower uterine segment near the cervix, may represent an early intrauterine too small to i dentify a pole. However, the gestational sac position now in the lower uterine segment near th e cervix suggests demise or a blighted ovum with impending spontaneous . No adnexal ma ss or free fluid to suggest ectopic . RPTAT: HMVK .Sohan Oh MD, Date Time Electronically viewed and signed by .Sohan Oh MD, on 10/17/2016 03:02 .K/
[2016-10-17] MEDS ORDERED: NAPR-260 PO (03:43)
[2016-10-17 04:14] VITALS: BP 127/86; PULSE 66; RESP 20; TEMP 98.4
[2016-10-19] MEDS ORDERED: METOCLOPRAMIDE 10 MG INJ ONE (20:21)
[2016-10-19] MEDS ORDERED: MIDAZOLAM 1 MG/ML 2 ML INJ ONE (20:21)
[2016-10-19] MEDS ORDERED: PROPOFOL 20 ML ONE (20:21)
[2016-10-19] MEDS ORDERED: FENTAnyl 50 MCG/ML VIAL ONE (20:21)
== END 2016-10-17 04:16 | disposition home or self-care (01) ==
LOC: FTE 19:32
DX: O03.4 Incomplete spontaneous abortion without complication (principal); R10.2 Pelvic and perineal pain
CPT/HCPCS: 36415; 76801; 76817; 81001; 84702; 85025; 86900; 86901; 88305; 96360; J7030; Z7502; Z7610; 81003

== ENCOUNTER 2016-11-14 11:36 | Emergency (ER) | payer OTHER ==
[~2016-11-14] VITALS: Wt 76.0 kg
[2016-11-14] MEDS ORDERED: CLOT30CR24 TOP (12:11)
[2016-11-14] MEDS ORDERED: IBUP-1542 PO (12:11)
[2016-11-14] MEDS ORDERED: CEPH-443 PO (12:11)
[2016-11-14] MEDS ORDERED: SULF1TAB31 PO (12:11)
--- NOTE | 2016-11-14 12:40 | ERD ---
ER Documentation Chief Complaint Date/Time DATE: 11/14/16 TIME: 12:38 Chief Complaint LEFT FOOT PAIN AND SWELLING X 3 DAYS HPI 21-year-old female otherwise healthy presents with left foot pain and swelling that started 2-3 days ago. Patient states that it started out as a blister in between the toes on the left second and first toe, then there is more swelling that is extending to the dorsum of the foot. Patient reports achy pain, that is localized, worse when she walks on her foot, better with resting. She denies any trauma fevers or chills. She denies history of diabetes. ROS All systems reviewed and are negative except as per history of present illness. Medications Home Meds Active Scripts Ibuprofen* (Motrin*) 600 Mg Tab, 600 MG PO Q6, #30 TAB Prov:SHARMIN HORNE PA-C 11/14/16 Clotrimazole* (Clotrimazole* AF) 1% - 30 Gm Cream.gm., 1 APPLIC TOP BID for 7 Days, TUB Prov:SHARMIN HORNE PA-C 11/14/16 Sulfamethoxazole/Trimethoprim* (Bactrim Ds* Tablet) 1 Each Tablet, 1 TAB PO BID , #14 TAB Prov:SHARMIN HORNE PA-C 11/14/16 Cephalexin* (Keflex*) 500 Mg Capsule, 500 MG PO QID for 7 Days, CAP Prov:SHARMIN HORNE PA-C 11/14/16 Naproxen* (Naprosyn*) 500 Mg Tablet, 500 MG PO BID Y for PAIN AND/OR INFLAMMATION, #30 TAB Prov:MISSY DICKEY 10/17/16 Acetaminophen* (Tylophen*) 500 Mg Capsule, 1 CAP PO Q6H Y for PAIN AND OR ELEVATED TEMP, #20 CAP Prov:ANDER ROWE [employer] 09/08/16 Ciprofloxacin Hcl* (Ciprofloxacin Hcl*) 500 Mg Tablet, 500 MG PO BID for 10 Days , TAB Prov:PATRICE HAYS PA-C 06/19/16 Naproxen* (Naprosyn*) 500 Mg Tablet, 500 MG PO BID Y for PAIN AND/OR INFLAMMATION, #30 TAB Prov:PATRICE HAYS PA-C 06/19/16 Hydrocodone/Acetaminophen ([place] 5-325 Tablet) 1 Each Tablet, 1 TAB PO Q6H Y for PAIN, #12 TAB Prov:PATRICE HAYS PA-C 06/19/16 Nitrofurantoin Monohyd Macrocr* (Macrobid*) 100 Mg Capsr, 100 MG PO BID for 7 Days, CAP Prov:PATRICE HAYS PA-C 03/24/16 Oxycodone HCl/Acetaminophen (Percocet 5-325 mg Tablet) 1 Each Tablet, 1 EACH PO TID for PAIN, #12 TAB Prov:LEANNE MALLOY MD 02/19/16 Ondansetron Hcl* (Zofran*) 4 Mg Tablet, 4 MG PO Q8H Y for NAUSEA AND/OR VOMITING , #20 TAB Prov:LEANNE MALLOY MD 02/19/16 Ibuprofen* (Ibuprofen*) 600 Mg Tablet, 600 MG PO Q8 for PAIN AND/OR INFLAMMATION , #30 TAB Prov:LEANNE MALLOY MD 02/19/16 Cephalexin* (Keflex*) 500 Mg Capsule, 500 MG PO TID for 7 Days, CAP Prov:LEANNE MALLOY MD 02/19/16 Allergies Allergies: Coded Allergies: No Known Allergies (Verified Allergy, Mild, 02/19/16) PMhx/Soc History of Surgery: Yes (, CHOLESYSTECTOMY) Anesthesia Reaction: No Hx Neurological Disorder: No Hx Respiratory Disorders: No Hx Cardiac Disorders: No Hx Psychiatric Problems: No Hx Miscellaneous Medical Probl: No (KIDNEY STONES, PARA 2, 1, ) Hx Alcohol Use: No Hx Substance Use: No Hx Tobacco Use: No Physical Exam Vitals Vital Signs Date Time Temp Pulse Resp B/P Pulse Ox O2 Delivery O2 Flow Rate FiO2 11/14/16 11:51 98.0 80 18 129/86 99 Physical Exam General: Well-developed, well-nourished. The patient appears in no acute distress. HEENT: Head is normocephalic, atraumatic. No scleral icterus. Neck: Supple. Nontender. Lungs: Clear to auscultation. Normal air movement. Heart: Regular rate and rhythm. S1 and S2 are normal. No murmurs, gallops, or rubs. Abdomen: Soft, nontender, nondistended. Bowel sounds are normoactive. Extremities: Superficial ulcerations seen between the left great toe as well as the first toe. There is erythema and warmth on the top of the foot that is just proximal to the toe. No abscess appreciated. Pulses 2+. Neurologic: Alert and oriented 3. No focal deficits. Skin: Normal turgor. No rash or lesions. Procedures/MDM 21-year-old female presents with cellulitis of the foot, it appears that the patient has a little bit of ulceration between the toes, that may be fungal. She will be covered with clotrimazole as well as Keflex and Bactrim. There is no evidence of abscess, necrosis, bony abnormalities. Departure Diagnosis: Primary Impression: Cellulitis of foot, left Condition: Good Patient Instructions: Cellulitis Additional Instructions: Follow up in 2 days in your clinic for wound check. SHARMIN HORNE PA-C Nov 14, 2016 12:40
== END 2016-11-14 13:06 | disposition home or self-care (01) ==
LOC: FTE 11:36
DX: L03.116 Cellulitis of left lower limb (principal)
CPT/HCPCS: 99284